=== PATIENT | male | born 1960 | race Caucasian/White ===

== ENCOUNTER → 2023-06-29 11:01 | Outpatient (REF) | payer OTHER, SELFPAY | LOC: RAD 11:01 | PROVIDERS: ATTENDING PHYSICIAN Physician Assistant Medical; FAMILY PHYSICIAN Family Medicine | DX: R55 Syncope and collapse (principal); Z79.01 Long term (current) use of anticoagulants; I69.30 Unspecified sequelae of cerebral infarction | CPT/HCPCS: 70450 ==

== ENCOUNTER → 2023-07-27 06:30 | Day surgery (SDC) | payer OTHER, SELFPAY | LOC: GI 06:30 | PROVIDERS: ATTENDING PHYSICIAN Internal Medicine Gastroenterology; FAMILY PHYSICIAN Family Medicine | DX: R12 Heartburn (principal); K44.9 Diaphragmatic hernia without obstruction or gangrene; K31.7 Polyp of stomach and duodenum; K22.89 Other specified disease of esophagus | CPT/HCPCS: 43239; 88305 ==

== ENCOUNTER 2023-08-09 17:06 | Outpatient (RCR) | payer OTHER, SELFPAY | END 2023-08-09 23:59 | disposition home or self-care (01) | LOC: RPT 17:06 | PROVIDERS: ATTENDING PHYSICIAN Physician Assistant Medical; FAMILY PHYSICIAN Family Medicine | DX: R55 Syncope and collapse (principal); I69.30 Unspecified sequelae of cerebral infarction; Z79.01 Long term (current) use of anticoagulants; Z73.6 Limitation of activities due to disability | CPT/HCPCS: 97110; 97112; 97163; 97530 ==

== ENCOUNTER 2023-09-04 15:19 | Outpatient (RCR) | payer OTHER, SELFPAY | END 2023-09-05 09:23 | disposition home or self-care (01) | LOC: RPT 15:19 | PROVIDERS: ATTENDING PHYSICIAN Physician Assistant Medical; FAMILY PHYSICIAN Family Medicine | DX: I69.898 Other sequelae of other cerebrovascular disease (principal); S06.0X1D Concussion with loss of consciousness of 30 minutes or less, subsequent encounter; R55 Syncope and collapse; Z73.6 Limitation of activities due to disability; R26.89 Other abnormalities of gait and mobility; M62.81 Muscle weakness (generalized); Z79.01 Long term (current) use of anticoagulants | CPT/HCPCS: 97110; 97112; 97530 ==

== ENCOUNTER → 2024-04-25 15:03 | Outpatient (REF) | payer OTHER, SELFPAY | LOC: HWRAD 15:03 | PROVIDERS: ATTENDING PHYSICIAN Nurse Practitioner Family | DX: M79.672 Pain in left foot (principal) | CPT/HCPCS: 73630 ==

== ENCOUNTER → 2024-07-18 09:25 | Outpatient (REF) | payer OTHER, SELFPAY | LOC: HWRAD 09:25 | PROVIDERS: ATTENDING PHYSICIAN Family Medicine | DX: M81.0 Age-related osteoporosis without current pathological fracture (principal) | CPT/HCPCS: 77080 ==

== ENCOUNTER 2025-04-27 04:23 | Observation (INO) | payer OTHER, SELFPAY ==
[2025-04-26 23:15] VITALS: BMI 28.7
[2025-04-26 23:22] VITALS: BP 120/86
--- NOTE | 2025-04-26 23:32 | ED.GENMED ---
History of Present Illness
General
Chief Complaint: Back Pain
Time Seen by Provider: 04/26/25 23:32
History of Present Illness
History of Present Illness:
FOCUSED PAST MEDICAL HISTORY
- GERD, Vital's esophagus, hyperlipidemia, has had low blood pressure readings
REVIEW OF OLD RECORDS
- Patient had endoscopy last year related to Vital's esophagus
Note:
CHIEF COMPLAINT(S)
Back pain after a twisting injury while shoveling snow.
HISTORY OF PRESENT ILLNESS
The patient is a 64-year-old male with a history of a significant stroke six years ago, currently on Eliquis (apixaban), and diagnosed with ankylosing spondylitis since age 28. He presented with acute back pain following a twisting motion while
shoveling snow. He did not fall but was unable to move and was stuck on the floor for several hours. The pain is not shooting down the legs, and there is no exacerbation upon palpation or leg raising, which suggests the absence of significant nerve
root compression. The patient reports a past episode of sciatica but indicates that the current pain does not behave in the same manner. He denies any trauma or fall and reports taking 20 mg of prednisone prior to arrival.
PAST MEDICAL AND SURIGICAL HISTORY
- Stroke six years ago with subsequent slight foot drop on the right side.
- Ankylosing spondylitis diagnosed at 28 years old.
- Barretts esophagus.
CHRONIC MEDICAL CONDITIONS SIGNIFICANTLY AFFECTING CARE
- Significant ankylosing spondylitis.
- History of a major stroke.
MEDICATIONS
- Eliquis (apixaban).
- Prednisone (20 mg taken earlier).
PHYSICAL EXAM
General: Alert, no acute distress.
Skin: Warm, dry.
Head: Normocephalic, atraumatic.
Neck: Supple, trachea midline.
Eye, Ears, Nose, Mouth and Throat: Oral mucosa moist.
Cardiovascular: Normal peripheral perfusion, no edema.
Respiratory: Respirations are non-labored.
Gastrointestinal: Abdomen nondistended.
Back: Decreased active range of motion, primarily prefers to lay flat on the stretcher, no midline L-spine tenderness
Musculoskeletal: Normal range of motion, normal strength.
Neurological: Alert and oriented to person, place, time, and situation, no focal neurological deficit observed. Good L5 and S1 strength bilateral lower extremities, normal L4 reflexes, is able to flex at each hip but is somewhat limited due to pain
in the back
Psychiatric: Cooperative, appropriate mood & affect.
PROBLEM LIST
Acute:
- Back pain secondary to twisting injury.
Chronic:
- Ankylosing spondylitis.
- History of stroke.
- Barretts esophagus.
PLAN
The patient will be administered a single dose of Toradol (ketorolac) for pain management, along with a dose of Dilaudid (hydromorphone) and an anti-nausea medication. Due to being on Eliquis, the risks of anti-inflammatory medications were
discussed, but a single dose was considered potentially beneficial given the patients significant discomfort. The patient will forego his scheduled dose of Eliquis tonight.
DIFFERENTIAL DIAGNOSIS
The Differential Diagnosis includes, in no particular order and is not limited to:
1. Muscular strain
2. Ligamentous injury
3. Disc herniation
4. Ankylosing spondylitis flare-up
5. Spinal stenosis
6. Vertebral fracture (less likely without trauma)
7. Sciatica
8. Kidney stone
9. Abdominal aortic aneurysm
10. Zoster without rash
SUMMARY OF ENCOUNTER
The patient, a 64-year-old male with a history of ankylosing spondylitis and a prior stroke, presented to the emergency department with acute back pain following a twisting injury while shoveling snow. The pain did not radiate to his legs, and there
was no evident nerve root compression. The patient did not experience any trauma or fall. Given his medical history and current symptoms, differential diagnoses including muscular strain and an ankylosing spondylitis flare-up were considered. The
patients high pain tolerance was noted, and he expressed discomfort with the idea of going home. Pain management strategies were discussed, including the potential benefit of continuing oral analgesics at home.
PLAN
The patient will receive pain management with ketorolac and hydromorphone in the emergency department. The potential risks of anti-inflammatory medications were discussed due to his concurrent use of Eliquis (apixaban). It was decided to administer
only a single dose to address his severe discomfort. The patient will forgo his scheduled Eliquis dose for the night. Further blood work will be conducted, and a discussion with the hospital team regarding potential admission for overnight
observation will take place, given the patients concerns about managing at home.
MEDICATION RECONCILIATION
Administered medications include ketorolac and hydromorphone. The patient previously took 20 mg of prednisone before arrival.
MEDICAL DECISION MAKING
- Chronic conditions affecting care include ankylosing spondylitis, history of stroke, and the prior episode of sciatica.
- Differential diagnoses considered were muscular strain, ankylosing spondylitis flare-up, and others listed.
- Data: Clinical notes were reviewed. No imaging was performed as the presentation suggested a non-traumatic muscular issue.
- Risk: Decisions regarding pain management with risks continued due to the patients use of blood thinners. Consideration of admission for observation was noted due to the complexity and risk associated with his conditions, though discharge was also
discussed given stable and controlled symptoms.
DIAGNOSIS
1. Acute back pain following twisting injury - M54.5
2. Ankylosing spondylitis flare-up - M45.9
3. History of cerebrovascular accident - I69.30
RADIOLOGY
- Lumbar spine x-ray she has no significant ankylosing spondylitis but does show some loss of height of the disc of L5 and S1
LABS
- CBC and chemistries including CK relatively unremarkable
UPDATE
- Appears fairly comfortable at rest however as soon as he tries to rotate thoracolumbar spine he has debilitating kind of pain to the point that he is able to be discharged
- We have walked him for several hours and gave 2 rounds of narcotic analgesia, IV NSAID, and Valium
Past History
Past History
ED Past Medical History: CVA (Embolic CVA 2019), Hypercholesterolemia, Other (Ankylosing spondylitis) and Other
ED Past Surgical History: Orthopedic; Negative Appendectomy, Bowel resection or Cardiac
Social History
Tobacco: Non-smoker
Alcohol: None
Drug: None
Personal:
Living: with family
Employment: Employed
Family History
Family History: Other (Stroke)
Phy Exam
Physical Exam
Physical Exam:
See HPI
Course
Orders/Labs/Results
Orders:
Orders
04/26/25 23:40
HYDROmorphone [Dilaudid] 1 mg IV NOW STA
Ketorolac [Toradol] 15 mg IV NOW STA
Ondansetron Injectable [Zofran] 4 mg IV NOW STA
04/27/25 00:05
CR Lumbar Spine Comp Min 4 Vw* Urgent
Reason For Exam: severe pain after twisting motion reports h/o
04/27/25 01:28
HYDROmorphone [Dilaudid] 1 mg IV NOW STA
04/27/25 02:31
diazePAM [Valium Injection] 5 mg IV NOW STA
04/27/25 02:39
Basic Metabolic Panel Urgent
Complete Blood Count/With Diff Urgent
Total CK [Creatine Phosphokinase] Urgent
04/27/25 03:51
Admit/Transfer Patient As Directed
Co-Sign Provider:
Level of Care: Observation services
Assign to:: Medical/Surgical
Physician / Group: Lasha
Diagnosis: Back pain
PRN Pain Medication Management As Directed
May give lesser potent ordered pain med per pt: Yes
preference::
Protocol:: Medication orders for pain may be administered in a
manner that supports deferring to patient preference
when the pt is:
- Requesting an ordered lesser potent pain medication.
Least to most potent pain medications are defined
as: acetaminophen < NSAID < tramadol < opioids
(morphine, oxycodone, hydromorphone).
- Requesting a lesser dose of the same medication IF
ORDERED.
- Requesting a less intrusive route of administration
if both routes are prescribed by the provider (PO <
IV).
04/27/25 03:52
Code Status As Directed
Resuscitation Status: Full Code
04/27/25 05:51
Acetaminophen [Tylenol] 650 mg PO Q4HPRN PRN
HYDROmorphone [Dilaudid] 0.5 mg IV Q4HPRN PRN
Ketorolac [Toradol] 15 mg IV Q6HPRN PRN
diazePAM [Valium Injection] 5 mg IV Q6HPRN PRN
04/27/25 05:51
Activity As Directed
Activity Level: Ambulate
With Assistance
Bladder Scan As Directed
Follow Bladder Retention/Intermittent Cath Algorithm?: Yes
PRN if no void in __ hours: 6
Frequency: Per Retention Algorithm
If Bladder Scan Result >: 400
then:: Straight cath
Heat Application As Directed
Apply heat therapy device to (location):: Low Back
Device Frequency setting:: 20 minute cycles
Device temperature setting:: Moderate: 100 F (38 C)
I/O [Intake/ Output] As Directed
Frequency: Per unit guidelines
Straight Cath As Directed
Frequency: Per Retention Algorithm
Additional Instructions: straight cath as needed per acute urinary retention algorithm for 24 hrs
Additional Instructions: for bladder scan greater than 400 mL
Vital Signs As Directed
Frequency: Per unit guidelines
Weight As Directed
Frequency: Daily
Oxygen Therapy [O2 Therapy] [RESP] Routine
Titrate/Wean O2 to maintain O2 sat greater than (%): 94
Ot Eval And Treat Routine
PT Consult [Pt Eval And Treat] Routine
Activity Level: Ambulate
With Assistance
04/27/25 Breakfast
Regular
At Your Request: Full Participation
Does patient need a safe tray?: No
04/27/25 08:00
Apixaban [Eliquis] 5 mg PO BID
Cholecalciferol (Vitamin D3) [VITAMIN D3 (cholecalciferol)] 125 mcg PO DAILY
Pantoprazole [Protonix] 40 mg PO DAILY
Pravastatin Sodium [Pravachol] 10 mg PO DAILY
Prednisone [Deltasone] 20 mg PO DAILY
coQ10 (ubiquinol) [CoQmax Ubiquinol] 200 mg PO DAILY
Abnormal Lab Results
04/27/25
02:39
MCH 31.1 H pg
(27.0-31.0)
Absolute Neuts (auto) 9.7 H 10^3/uL
(1.4-6.5)
Absolute Lymphs (auto) 0.8 L 10^3/uL
(1.2-3.4)
Neutrophils % 90.1 H %
(42.2-75.2)
Lymphocytes % 7.2 L %
(20.5-51.1)
Glucose 123 H mg/dl
(70-99)
Creatine Kinase 182 H U/L
(55-170)
04/27/25 02:39
04/27/25 02:39
Vital Signs
Initial and Last Documented VS:
Initial Vital Signs
Temp Pulse Resp Pulse Ox
37.2 C 56 16 99
04/26/25 23:17 04/26/25 23:17 04/26/25 23:17 04/26/25 23:17
Last Documented Vital Signs
Temp Pulse Resp BP Pulse Ox
36.8 C 64 18 116/71 99
04/27/25 05:09 04/27/25 05:09 04/27/25 05:09 04/27/25 05:09 04/27/25 05:09
*Pulse Oximetry
SaO2: 96
Oxygen Mode of Delivery: Room air
Patient hypoxic: no
*Critical Care Note
Total Time (30-74mins, 75-104mins- exclusive of procedures): Not Applicable
ED Attending Note
-
Portions of this chart may have been created with voice recognition software.� Occasional wrong word or��sound alike� substitutions may have occurred due to the inherent limitations of voice recognition software.
Discharge Plan
Departure
Patient Disposition: Admit
Date of Disposition: 04/27/25
Time of Disposition: 03:23
Presentation/result/management discussed w/ accepting MD/DO: Hospitalist
Discharge Problem:
Intractable low back pain
Interventions
Interventions:
*Risk Screen - Suicide Last Done: 04/26/25 23:17
*General Assessment Last Done: 04/26/25 23:17
*Neglect/Abuse Screening Last Done: 04/26/25 23:17
*ED COVID-19 Vaccine History Last Done: 04/26/25 23:17
*ED Influenza Vaccine History Last Done: 04/26/25 23:17
[facility] Fall Risk Assessment Tool Last Done: 04/26/25 23:15
*Nursing Disposition Last Done: 04/27/25 05:00
ED-Musculoskeletal Assessment Last Done: 04/26/25 23:17
Discharge Date and Time
Discharge Date/Time: 04/27/25 05:00
[2025-04-26] MEDS: DILAUDID 1 MG IV (23:45)
[2025-04-26] MEDS: ZOFRAN 4 MG IV (23:45)
[2025-04-26] MEDS: TORADOL 15 MG IV (23:45)
[2025-04-27] VITALS (10 sets, daily range): BP systolic 90–128; BP diastolic 54–92; PULSE 84; BMI 28.6
[2025-04-27] MEDS: DILAUDID 1 MG IV (01:35)
[2025-04-27] MEDS: VALIUM INJECTION 5 MG IV (02:40)
[2025-04-27 02:59] LABS: Hematocrit 41.7 % (39.0-52.0); Hemoglobin 14.7 g/dL (13.0-18.0); Mean Corp Hgb Conc. 35.3 g/dL (33.0-37.0); Mean Corpuscular Volume 88.3 fL (80.0-94.0); Nucleated Red Blood Cells % 0 % (-); Platelet Count 151 10^3/uL (130-400); Red Cell Dist. Width 12.3 % (11.5-14.5)
[2025-04-27 03:08] LABS: Blood Urea Nitrogen 20 mg/dl (9-20); Calcium 8.9 mg/dl (8.4-10.2); Carbon Dioxide 24 mmol/L (22-30); Chloride 105 mmol/L (98-107); Estimated Creatinine Clearance 70 ml/min; Glucose 123 mg/dl (70-99); Potassium 4.8 mmol/L (3.5-5.1); Sodium 136 mmol/L (135-145); eGFR > 60.00
--- NOTE | 2025-04-27 03:53 | HPS.HSE ---
Family Physician
-
Family Physician: Arnav Viera
Chief Complaint
-
Back Pain
History of Present Illness
Patient is a 64y M with PMH significant for ankylosing spondylitis, GERD and prior CVA who presents to ED complaining of back pain. Patient states that he was shoveling snow today when he twisted at the waist and noted a sudden, sharp pain in
the center of his low back. Pain was quite severe. No radiation of the pain into the upper back, abdomen or legs. Patient notes that the pain has persisted throughout the evening. He is now unable to move hardly at all due to increased pain with
movement. He cannot stand / bear weight. No numbness or tingling in the legs. No GI or complaints.
Patient started taking his usual prednisone today (20mg daily and tapering over a month) as he usually does when his ankylosing spondylitis flares up. He is followed by Rheumatology as an outpatient.
Medical History
Past Medical History
Past Medical History: Reports Other
Additional Past Medical History:
Ankylosing Spondylitis
CVA with Residual Right Hemiparesis
GERD / Vital's Esophagus
CKD III
Skin Cancer
BPH
Hypogonadism
Past Surgical History: Reports Other
Additional Past Surgical History:
Left Rotator Cuff x 2
IAT (2019)
Loop Recorder Placed / Removed
Appendectomy
Social History
Tobacco: Non-smoker
Alcohol: None
Drug: None
Family History
Family History: Not pertinent
Allergies / Home Medications
Allergies reflects when Allergies were last updated in [facility].
Home Medications with original date entered in [facility]
Allergy/Medication List:
Allergies
Allergy/AdvReac Type Severity Reaction Status Date / Time
Penicillins Allergy Unknown unknown Verified 04/26/25 23:16
(childhood)
Home Medications
apixaban 5 mg tablet (Eliquis) 5 mg PO BID 11/30/22
cholecalciferol (vitamin D3) 125 mcg (5,000 unit) tablet (Vitamin D3) 125 mcg PO DAILY 11/30/22
coQ10 (ubiquinol) 200 mg capsule (CoQmax Ubiquinol) 200 mg PO DAILY 11/30/22
evolocumab 140 mg/mL subcutaneous syringe (Repatha Syringe) 140 mg SC Q2W 11/30/22
dexlansoprazole 60 mg capsule,biphase delayed release (Dexilant) 60 mg PO DAILY 04/26/25
pravastatin 10 mg tablet 10 mg PO DAILY 04/26/25
prednisone 20 mg tablet 20 mg PO DAILY 04/26/25
Review of Systems
-
History Source: Patient
A 12 point ROS was completed and negative except as noted: Yes
Constitutional: Denies Fever or Chills
Respiratory: Denies Cough or Trouble Breathing
Cardiac: Denies Chest Pain or Palpitations
Abdomen/GI: Denies Abdominal Pain, Nausea, Vomiting or Diarrhea
: Denies Dysuria, Frequency or Flank Pain
Musculoskeletal: Reports Other (Back pain); Denies Edema
Neurological: Denies Dizzy or Headache
Physical Exam
Vital Signs
Vital Signs
Temp Pulse Resp BP Pulse Ox
98.9 F 62 16 103/73 92
04/26/25 23:17 04/27/25 03:15 04/27/25 00:00 04/27/25 03:00 04/27/25 03:15
Physical Exam
General: Other (64y M in mild distress due to pain.)
HEENT: Moist mucous membranes and PERRLA
Respiratory: Clear; No Wheezes, Rales or Rhonchi
Cardiac: S1/S2 and Regular Rhythm; No Murmur
GI: Soft, Non Tender, Non Distended and Normal Bowel Sounds
Musculoskeletal: No Clubbing, No Cyanosis, No Edema and Other (Patient lying supone. Unable to sit upright / turn due to pain.)
Neuro: AO x 3 and Other (Mild R sided weakness (chronic / unchanged). Normal SLR bilaterally.)
Laboratory Results
-
04/27/25 02:39
04/27/25 02:39
Impression/Plan
-
A/P: Patient is a 64y M with PMH significant for ankylosing spondylitis, prior CVA and CKD who presents to ED complaining of back pain.
Back Pain
Ankylosing Spondylitis
- Observe overnight for further evaluation and treatment.
- Given mechanism (twisting / shoveling snow) - suspect that this is largely muscular in origin.
- Long h/o per patient - though x-rays do not show diffuse / significant changes c/w this.
- Continue prednisone at 20mg day for now with plan for usual slow taper over a month.
- Application of heat, additional pain control, Valium, etc.
- PT / OT evaluations and follow for pain improvement, increased mobility, etc.
- Follow-up with usual [facility] after discharge.
GERD / Vital's Esophagus
- Stable. Continue daily PPI.
Right Weakness s/p Prior CVA
- Stable. No new weakness appreciated.
- Continue Eliquis, statin, etc.
DVT Prophylaxis: On Eliquis
Code Status: Full
--- NOTE | 2025-04-27 05:10 | PTCARENOTE ---
Pt received from ED via stretcher accompanied by ED staff, pulled over to bed by staff. AAOx3. VSS. Reports of 5/10 pain, but reports a decrease in pain since meds in ED. No new pain meds given at this time. Pt made comfortable in bed with call loera
within reach.
[2025-04-27] MEDS: PROTONIX 40 MG PO (08:53)
[2025-04-27] MEDS: VITAMIN D3 (cholecalciferol) 125 MCG PO (08:53)
[2025-04-27] MEDS: DELTASONE 20 MG PO (08:54)
[2025-04-27] MEDS: PRAVACHOL 10 MG PO (08:54)
[2025-04-27] MEDS: ELIQUIS 5 MG PO (08:54)
[2025-04-27] MEDS: TORADOL 15 MG IV ×2 (08:58→15:10)
--- NOTE | 2025-04-27 13:03 | W.PN.UPDATE ---
Update Note
Progress Note Update
Seen and examined of independent of overnight physician. States of back pain after shoveling snow yesterday. Remains with intermittent back pain. History of ankylosing spondylitis and remains on steroids. Denies any radiation of the pain.
General: in bed,
HEENT: Moist mucous membranes, EOMI
Respiratory: non labored respiration
GI: Non Distended
Musculoskeletal: No Clubbing, No Cyanosis, No Edema
Neuro: AO x 3 and Other (Mild R sided weakness (chronic / unchanged). Normal SLR bilaterally.)
A/P: Patient is a 64y M with PMH significant for ankylosing spondylitis, prior CVA and CKD who presents to ED complaining of back pain.
Back Pain
Ankylosing Spondylitis
- suspect that this is largely muscular in origin.
- Long h/o per patient - though x-rays do not show diffuse / significant changes c/w this.
- Continue prednisone at 20mg day for now with plan for usual slow taper over a month.
- Application of heat, additional pain control, Valium, etc.
- PT / OT evaluations and follow for pain improvement, increased mobility, etc.
- Follow-up with usual [facility] after discharge.
Constipation
Bowel regimen
GERD / Vital's Esophagus
- Stable. Continue daily PPI.
Right Weakness s/p Prior CVA
- Stable. No new weakness appreciated.
- Continue Eliquis, statin, etc.
DVT Prophylaxis: On Eliquis
Code Status: Full
[2025-04-27] MEDS: MIRALAX 17 GRAMS PO (14:16)
--- NOTE | 2025-04-27 15:19 | W.DCSUMMARY ---
Discharge Summary
Discharge Data
Date of Admission: 04/27/25
Date of Discharge: 04/27/25
-
Pending Results: No
Hospital Course
64y M with PMH significant for ankylosing spondylitis, GERD and prior CVA who presents to ED complaining of back pain. Patient states he was shoveling snow yesterday and he twisted at the waist and felt sudden pain. Pain was in lower back.
Patient took his prednisone which he takes chronically for ankylosing spondylitis flareup. Patient underwent lumbar x-ray which showed moderate fecal material throughout the colon. Moderate bilateral SI joint and hip joint osteoarthritis. No
evidence of acute osseous injury. Multilevel degenerative disc disease. Patient stated he had bowel movement yesterday and had bowel movement once again in the hospital. Pain was controlled with medication. Flexeril was prescribed on discharge.
Patient was eval by physical and Occupational Therapy recommending outpatient therapy.
Discharge Plan
-
Patient Disposition: Home (Routine Discharge)
Discharge Diagnosis/Procedures: Back pain
Condition: Fair
Diet: Low Cholesterol
Activity: As tolerated
Driving Restrictions: As prior to admission
Other Services: PT
Referrals:
Arnav Viera MD [Family Provider, Family Practice] - in less than 1 week
Prescriptions:
New
cyclobenzaprine 5 mg tablet
5 mg PO TID PRN (Reason: back pain/muscle spasms) Qty: 21 0RF
Continued
cholecalciferol (vitamin D3) [Vitamin D3] 125 mcg (5,000 unit) Tablet
125 mcg PO DAILY
CoQmax Ubiquinol 200 mg Capsule
200 mg PO DAILY
Eliquis 5 mg Tablet
5 mg PO BID
Repatha Syringe 140 mg/mL Syringe
140 mg SC Q2W
prednisone 20 mg Tablet
20 mg PO DAILY
pravastatin 10 mg Tablet
10 mg PO DAILY
dexlansoprazole [Dexilant] 60 mg Capsule,Biphase Delayed Releas
60 mg PO DAILY
Discharge Orders:
Discharge Patient (As Directed); Ordered 04/27/25
Ordered By: Chris Velasquez
Discharge Date and Time
Print Language: LUX[place]BOURGISH
--- NOTE | 2025-04-27 16:22 | CM ---
Met with pt and bedside. IA completed. OBS form given and placed in chart. Lives with his spouse in a 2 story home with 3 steps at the entrance and a full BR on the 1st floor. Pt is independent in ADLs and IALs. No hx of HH,, SNF, home O2 or
DME. No insecurities identified. Confirmed PCP, Rx, insurance and drug coverage.
PCP: Arnav Lowe
Rx: [facility]
Pt is discharged to home. His will transport him.
== END 2025-04-27 17:15 | disposition home or self-care (01) ==
LOC: 4 EAST ACU 04:23
PROVIDERS: ADMITTING PHYSICIAN Hospitalist; ATTENDING PHYSICIAN Hospitalist; EMERGENCY PHYSICIAN Emergency Medicine; FAMILY PHYSICIAN Family Medicine
DX: M54.9 Dorsalgia, unspecified (principal); K21.9 Gastro-esophageal reflux disease without esophagitis; E78.5 Hyperlipidemia, unspecified; X50.1XXA Overexertion from prolonged static or awkward postures, initial encounter; Y93.H1 Activity, digging, shoveling and raking; M45.9 Ankylosing spondylitis of unspecified sites in spine; I69.351 Hemiplegia and hemiparesis following cerebral infarction affecting right dominant side; N18.30 Chronic kidney disease, stage 3 unspecified; N40.0 Benign prostatic hyperplasia without lower urinary tract symptoms; K59.00 Constipation, unspecified; M16.0 Bilateral primary osteoarthritis of hip; M51.369 Other intervertebral disc degeneration, lumbar region without mention of lumbar back pain or lower extremity pain; Z88.0 Allergy status to penicillin; Z79.52 Long term (current) use of systemic steroids; Z87.19 Personal history of other diseases of the digestive system; Z79.01 Long term (current) use of anticoagulants; Z90.49 Acquired absence of other specified parts of digestive tract; Z82.3 Family history of stroke; Z85.828 Personal history of other malignant neoplasm of skin
CPT/HCPCS: 72110; 80048; 82550; 85025; 96374; 96375; 96376; 97162; 97166; 97535; 99285; G0378